=== PATIENT | female | born 1985 | race Caucasian/White ===

== ENCOUNTER 2017-04-24 19:16 | Emergency (ER) | payer OTHER ==
[~2017-04-24] VITALS: Ht 152.4 cm; Wt 68.0 kg
[~2017-04-24 19:16] MED LIST: ALBUTEROL SULF8.5 GM INH; CODEINE-GUAIFE120 ML; PENICILLIN V P500 MG PO; TRAMADOL HCL50 MG PO; ZITHROMAX250 MG PO; ZOFRAN4 MG PO
== END 2017-04-24 19:48 | disposition home or self-care (01) ==
LOC: ED 19:16
DX: S93.402A Sprain of unspecified ligament of left ankle, initial encounter (principal); F17.200 Nicotine dependence, unspecified, uncomplicated; Z88.8 Allergy status to other drugs, medicaments and biological substances; Z88.1 Allergy status to other antibiotic agents; X58.XXXA Exposure to other specified factors, initial encounter
CPT/HCPCS: 73610; 99283

== ENCOUNTER 2017-11-17 19:47 | Emergency (ER) | payer SELFPAY ==
[~2017-11-17] VITALS: Ht 152.4 cm; Wt 68.0 kg
--- OUTSIDE RECORDS SUMMARY | ~2017-11-17 | XMS | Clinical Summary ---
Demographics + + + | Address | [address] | | | [place] [address] | + + + | Home Phone | | + + + | Preferred Language | Unknown | + + + | Marital Status | Single | + + + | Voodoo Affiliation | NON | + + + | Race | White | + + + | Ethnic Group | Not or | + + + Author + + + | Organization | Unknown | + + + | Address | Unknown | + + + | Phone | Unavailable | + + + Support + + + + + | Name | Relationship | Address | Phone | + + + + + | DIANE FANG | [place] | [address] | | | | | [place] | | | | | [id number] | | + + + + + Care Team Providers + +------+ + | Care Glazier Helper Name | Role | Phone | + +------+ + PP | Unavailable | + +------+ + Source Comments [facility] is fully live on both [facility] and [facility] Allergies No Known Allergies Current Medications Not on file Active Problems Not on file Social History + +-------+ +--------+------+ | Tobacco Use | Types | Packs/Day | Years | Date | | | | | Used | | + +-------+ +--------+------+ | Never Assessed | | | | | + +-------+ +--------+------+ + + + | Sex Assigned at | Date Recorded | | | | + + + | Not on file | | + + + Plan of Treatment + + + + + | Health Maintenance | Due Date | Last Done | Comments | + + + + + | INFLUENZA VACCINE | | | | | (FLU SHOT) | 8 | | | + + + + + Results Not on filefrom Last 3 Months"
--- OUTSIDE RECORDS SUMMARY | ~2017-11-17 | XMS | Clinical Summary ---
Demographics + + + | Address | [address] | | | [place] [address] | + + + | Home Phone | | + + + | Preferred Language | Unknown | + + + | Marital Status | Single | + + + | Mandaen Affiliation | NON | + + + [...] [place] | | | | | [phone] | | + + + + + Care Team Providers + +------+ + | Care Head Loft Worker Name | Role | Phone | + +------+ + PP | Unavailable | + +------+ + Source Comments [facility] is fully live on both [facility] and [facility] InPatient.[facility] Allergies No Known Allergies Current Medications [...]
[2017-11-17] MEDS ORDERED: PENICILLIN V P500 MG PO (19:55)
[2017-11-17] MEDS ORDERED: ABREVA2 GM TOP (19:55)
[2017-11-17] MEDS ORDERED: MUCINEX600 MG PO (19:56)
[2017-11-17] MEDS ORDERED: AUGMENTIN 875-1 EACH PO (20:53)
== END 2017-11-17 21:22 | disposition home or self-care (01) ==
LOC: ED 19:47
DX: L01.00 Impetigo, unspecified (principal); F17.200 Nicotine dependence, unspecified, uncomplicated; Z88.1 Allergy status to other antibiotic agents; Z88.6 Allergy status to analgesic agent; Z79.899 Other long term (current) drug therapy; Z79.2 Long term (current) use of antibiotics
CPT/HCPCS: 99283

== ENCOUNTER 2018-09-27 22:51 | Emergency (ER) | payer BC, OTHER ==
[~2018-09-27] VITALS: Ht 152.4 cm; Wt 63.5 kg
[~2018-09-27 22:51] MED LIST changes: +ABREVA2 GM TOP; +AUGMENTIN 875-1 EACH PO; +MUCINEX600 MG PO
[2018-09-28] MEDS ORDERED: DICLOFENAC SODI75 MG PO (00:13)
== END 2018-09-28 00:30 | disposition home or self-care (01) ==
LOC: ED 22:51
PROC: 2W3CX1Z Immobilization of Right Lower Arm using Splint (ICD-10-PCS; principal; 2018-09-27)
DX: M77.9 Enthesopathy, unspecified (principal); F31.9 Bipolar disorder, unspecified; F17.200 Nicotine dependence, unspecified, uncomplicated; Z88.6 Allergy status to analgesic agent; Z88.1 Allergy status to other antibiotic agents
CPT/HCPCS: 29125; 73110; 99283-25

== ENCOUNTER 2020-06-24 19:45 | Emergency (ER) | payer OTHER ==
[~2020-06-24] VITALS: Ht 152.4 cm; Wt 63.5 kg
[~2020-06-24 19:45] MED LIST changes: +DICLOFENAC SODI75 MG PO
== END 2020-06-24 22:35 | disposition home or self-care (01) ==
LOC: ED 19:45
DX: J06.9 Acute upper respiratory infection, unspecified (principal); F17.200 Nicotine dependence, unspecified, uncomplicated; Z88.8 Allergy status to other drugs, medicaments and biological substances; Z88.1 Allergy status to other antibiotic agents
CPT/HCPCS: 71045; 80053; 85025; 99283-25; C9803

== ENCOUNTER 2022-04-23 18:04 | Emergency (ER) | payer BC, OTHER ==
[~2022-04-23] VITALS: Ht 152.4 cm; Wt 69.2 kg
[2022-04-23] MEDS ORDERED: CYCLOBENZAPRINE5 MG PO (18:24)
== END 2022-04-23 22:07 | disposition home or self-care (01) ==
LOC: ED 18:04
DX: M54.9 Dorsalgia, unspecified (principal); R31.9 Hematuria, unspecified; F17.200 Nicotine dependence, unspecified, uncomplicated; Z88.6 Allergy status to analgesic agent; Z88.1 Allergy status to other antibiotic agents
CPT/HCPCS: 71046; 72080; 74176; 81001; 84703; J1885

== ENCOUNTER 2025-04-17 11:46 | Emergency (ER) | payer SELFPAY ==
[~2025-04-17] VITALS: Ht 152.4 cm; Wt 74.8 kg
[~2025-04-17 11:46] MED LIST changes: +CYCLOBENZAPRINE5 MG PO; +ZORVOLEX35 MG PO
[2025-04-17] MEDS ORDERED: MONO-LINYAH 281 EACH PO (12:29)
[2025-04-17] MEDS ORDERED: SODIUM CHLORIDE 0.9% 500 ML IV PRN (12:30)
[2025-04-17] MEDS ORDERED: KETOROLAC TROMETHAMINE 15 MG/ML VIAL IV ONE (12:30)
[2025-04-17 12:31] LABS: BASOPHILS 0.7 % (0.1-1.2); EOSINOPHILS 1.1 % (0.7-5.8); LYMPHOCYTES 23.3 % (19.3-51.7); MCH 30.4 PG (25.6-32.2); MCHC 34.8 g/dL (32.2-35.5); MCV 87.5 fL (79.4-94.8); MONOCYTES 6.8 % (4.7-12.5); NEUTROPHILS 67.8 % (34.0-71.1); RBC 5.06 M/uL (3.93-5.22)
[2025-04-17 12:46] LABS: ALT (SGPT) 14.0 U/L (14-59); AST (SGOT) 12.0 U/L (15-37); GLOMERULAR FILTRATION RATE,EST 112.0 mL/min (>60); PROTEIN, TOTAL 7.4 g/dL (6.4-8.2); UREA NITROGEN 9.0 mg/dL (7-18)
[2025-04-17 12:49] LABS: BLOOD/HGB, URINE SMALL (Negative); KETONE, URINE NEGATIVE (Negative); LEUK ESTERASE, URINE NEGATIVE (negative); NITRITE, URINE NEGATIVE (negative)
[2025-04-17 12:54] LABS: BACTERIA, URINE NONE SEEN /hpf (negative); CRYSTALS, URINE NONE SEEN (0-1+); EPITHELIAL CELLS, URINE SQUAMOUS 2+ /lpf (0-1+)
[2025-04-17 12:55] LABS: CASTS, URINE NONE SEEN \\lpf; REFLEX CULTURE, URINE No (No)
[2025-04-17 14:20] VITALS: BP 132/89
== END 2025-04-17 14:20 | disposition home or self-care (01) ==
LOC: ED 11:46
PROVIDERS: Emergency Medicine
DX: R31.29 Other microscopic hematuria (principal); R10.9 Unspecified abdominal pain; F17.200 Nicotine dependence, unspecified, uncomplicated; Z88.6 Allergy status to analgesic agent; Z88.1 Allergy status to other antibiotic agents; Z79.890 Hormone replacement therapy
CPT/HCPCS: 36415; 74176; 80053; 81001; 82550; 84703; 85025; 96374; 99284-25; J1885; J7040